=== PATIENT | male | born 1965 | race Caucasian/White ===

== ENCOUNTER 2024-11-08 00:21 | Inpatient (IN) | payer BC, SELFPAY ==
[2024-11-07 19:50] VITALS: BP 134/94
[2024-11-07 20:04] LABS: % Basophils 0.3 % (0-2); % Eosinophils 2.1 % (0-6); % Immature Granulocytes 0.4 % (0-0.5); % Lymphocytes 2.1 % (20.5-51.1); % Monocytes 2.4 % (1.7-9.3); % Neutrophils 92.7 % (42.2-75.2); Absolute Eosinophils 0.3 10^3/uL (0-0.7); Absolute Immature Granulocytes 0.1 10^3/uL (0-0.05); Absolute Lymphocytes 0.3 10^3/uL (1.2-3.4); Absolute Monocytes 0.3 10^3/uL (0.1-0.6); Absolute Neutrophils 10.8 10^3/uL (1.4-6.5); Hematocrit 30.4 % (39.0-52.0); Hemoglobin 10.2 g/dL (13.0-18.0); Mean Corp Hgb Conc. 33.6 g/dL (33.0-37.0); Mean Corpuscular Hgb 30.3 pg (27.0-31.0); Mean Corpuscular Volume 90.2 fL (80.0-94.0); Mean Platelet Volume 10.1 fL (7.4-10.4); Nucleated Red Blood Cells % 0 % (-); Platelet Count 162 10^3/uL (130-400); Red Blood Cell Count 3.37 10^6/uL (4.70-6.10); Red Cell Dist. Width 15.2 % (11.5-14.5); White Blood Cell Count 11.7 10^3/uL (4.8-10.8)
[2024-11-07 20:26] VITALS: BP 158/89
[2024-11-07 20:27] LABS: ALT (SGPT) 34 U/L (0-50); AST (SGOT) 32 U/L (17-59); Albumin 3.4 g/dl (3.5-5.0); Alkaline Phosphatase 59 U/L (38-126); Blood Urea Nitrogen 46 mg/dl (9-20); Calcium 9.6 mg/dl (8.4-10.2); Carbon Dioxide 22 mmol/L (22-30); Chloride 106 mmol/L (98-107); Glucose 153 mg/dl (70-99); Potassium 3.6 mmol/L (3.5-5.1); Sodium 138 mmol/L (135-145); Total Bilirubin 0.3 mg/dl (0.2-1.3); Total Protein 6.3 g/dl (6.3-8.2); eGFR 32.11
--- NOTE | 2024-11-07 20:43 | ED.GENMED ---
History of Present Illness
General
Chief Complaint: Allergic Reaction
Source: patient and spouse
Exam Limitations: none
Time Seen by Provider: 11/07/24 20:22
Nursing documentation reviewed up to this point in time: agreed with
History of Present Illness
History of Present Illness:
59-year-old male presents emergency room due to vomiting abdominal pain for the past 2 hours. He was sent by his oncologist for cytokine release syndrome, reaction to a new immunotherapy drug. He has had 1 dose of that this week.
Past History
Past History
ED Past Medical History: HTN, Hypercholesterolemia, NIDDM, Psychiatric (Depression) and Other (Chronic lower extremity muscle pain and cramping, Neuropathy, vasculitis, MCUS Protein Problem)
ED Past Surgical History: Appendectomy and Orthopedic (Antonio knee surgery, C-spine surgery)
Social History
Tobacco: Non-smoker
Alcohol: None
Drug: None
Personal:
Living: with family
Employment: Employed
Review of Systems
Review of Systems
Allergies reviewed?: Yes
All Other Systems: Not applicable
Constitutional: Reports no symptoms
EENT: Reports no symptoms
Respiratory: Reports no symptoms
Cardiac: Reports no symptoms
ABD/GI: Reports abdominal pain, nausea and vomiting
: Reports no symptoms
Musculoskeletal: Reports no symptoms
Skin: Reports no symptoms
Neurological: Reports no symptoms
Endocrine: Reports no symptoms
Hematologic/Lymphatic: Reports no symptoms
Psychiatric: Reports no symptoms
Phy Exam
Physical Exam
Physical Exam:
Physical Exam
General: Appears uncomfortable, afebrile
Neck: supple. no meningeal signs. normal posterior pharynx
Heart: s1/s2 regular rate and rhythm, no murmur. equal radial
pulses.
HEENT: Pupils equal round reactive to light, EOMI
Lungs: no acute respiratory distress. clear bilaterally
Abdomen: normal bowel sounds. not tender. no CVAT
Neuro: alert and oriented. no focal neurological deficits cranial nerves II through XII intact
Skin: no rash
Psychiatric: well kept. interactive and cooperative
Extremities: no edema. no calf tenderness. negative homans. good distal pulses
Course
Orders/Labs/Results
Orders:
Orders
11/07/24 19:57
C-Reactive Protein Urgent
Comment: ADD ON
Complete Blood Count/With Diff Urgent
Comprehensive Metabolic Panel Urgent
Erythrocyte Sed Rate Urgent
Comment: ADD ON
11/07/24 20:39
HYDROmorphone [Dilaudid] 0.5 mg .ROUTE .STK-MED ONE
Ondansetron Injectable [Zofran] 4 mg .ROUTE .STK-MED ONE
11/07/24 20:42
HYDROmorphone [Dilaudid] 0.5 mg IV NOW STA
Ondansetron Injectable [Zofran] 4 mg IV NOW STA
11/07/24 20:43
Lactated Ringers [Lr] 1,000 ml IV BOLUS
11/07/24 21:09
US Abdomen Complete/Upper Urgent
Comment:
Reason For Exam: epigastric pain, vomiting
11/07/24 21:13
Add On- LAB Urgent
Tests Added?: esr, crp
11/07/24 22:56
Dexamethasone Sod Phosphate [Decadron] 10 mg IV NOW STA
11/07/24 22:57
Ferritin Urgent
Fibrinogen Urgent
PTT Urgent
Prothrombin Time Urgent
11/07/24 23:02
HYDROmorphone [Dilaudid] 0.5 mg IV NOW STA
11/07/24 23:18
Ondansetron Injectable [Zofran] 4 mg .ROUTE .STK-MED ONE
11/07/24 23:20
Ondansetron Injectable [Zofran] 4 mg IV NOW STA
11/07/24 23:31
Admit/Transfer Patient As Directed
Co-Sign Provider:
Level of Care: Inpatient admission
Assign to:: Medical/Surgical
Physician / Group: hayley
Diagnosis: cytokine release syndrome
Reason for Hospitalization: cytokine release syndrome
Expected length of stay greater than two midnights?: Yes
ELOS- Estimated Length of Stay in days: 2
I certify the patient meets the requirements for IP care: Yes
Code Status As Directed
Resuscitation Status: Full Code
PRN Pain Medication Management As Directed
May give lesser potent ordered pain med per pt: Yes
preference::
Protocol:: Medication orders for pain may be administered in a
manner that supports deferring to patient preference
when the pt is:
- Requesting an ordered lesser potent pain medication.
Least to most potent pain medications are defined
as: acetaminophen < NSAID < tramadol < opioids
(morphine, oxycodone, hydromorphone).
- Requesting a lesser dose of the same medication IF
ORDERED.
- Requesting a less intrusive route of administration
if both routes are prescribed by the provider (PO <
IV).
Abnormal Lab Results
11/07/24 11/07/24
19:57 22:57
WBC 11.7 H 10^3/uL
(4.8-10.8)
RBC 3.37 L 10^6/uL
(4.70-6.10)
Hgb 10.2 L g/dL
(13.0-18.0)
Hct 30.4 L %
(39.0-52.0)
RDW 15.2 H %
(11.5-14.5)
Abs Immat Gran (auto) 0.1 H 10^3/uL
(0-0.05)
Absolute Neuts (auto) 10.8 H 10^3/uL
(1.4-6.5)
Absolute Lymphs (auto) 0.3 L 10^3/uL
(1.2-3.4)
Neutrophils % 92.7 H %
(42.2-75.2)
Lymphocytes % 2.1 L %
(20.5-51.1)
ESR 37 H mm/hour
(0-20)
APTT 23.0 L Sec
(23.4-35.0)
BUN 46 H mg/dl
(9-20)
Creatinine 2.3 H mg/dL
(0.7-1.3)
Glucose 153 H mg/dl
(70-99)
Albumin 3.4 L g/dl
(3.5-5.0)
11/07/24 19:57
11/07/24 19:57
Vital Signs
Initial and Last Documented VS:
Initial Vital Signs
Temp Pulse Resp BP Pulse Ox
97.8 F 105 16 134/94 95
11/07/24 19:50 11/07/24 19:50 11/07/24 19:50 11/07/24 19:50 11/07/24 19:50
Last Documented Vital Signs
Temp Pulse Resp BP Pulse Ox
97.8 F 88 21 131/79 93
11/07/24 19:50 11/07/24 21:30 11/07/24 21:30 11/07/24 21:00 11/07/24 21:30
MDM/Problems Addressed
Differential Diagnosis Includes:
Cytokine release syndrome, cholecystitis, pancreatitis
MDM/Problems Addressed:
59-year-old male with likely cytokine release syndrome, nausea vomiting abdominal pain. Ultrasound abdomen no acute findings. Abdomen soft. Transfer accepted at [facility], but no beds available. Admit to hospital
*Radiology
Radiology exam reviewed: radiology read reviewed (US abd nad)
*Pulse Oximetry
Patient hypoxic: no
*Powersaw Supervisor Interpretation
Rate: normal
Interpretation: normal
Heart Rate: 85
Rhythm: sinus
*Critical Care Note
Total Time (30-74mins, 75-104mins- exclusive of procedures): 30
comment:
Critical care statement: A total of 30 minutes of critical care time was provided for this patient. This includes management of unstable vital signs, evaluation of the patient at bedside, reviewing the patient's pertinent medical records, discussion
with consultants, review of old EKGs and review of pertinent medical records. This time with separate from time utilized to perform the aforementioned documented procedures
Patient Management
Social determinants of health affecting care: Living situation and Strong social support
Discussion with other providers: Hospitalist and Allergist/Immunologist Physician (Oncology, Dr. Stark)
Escalation/DeEscalation of care consider admission/obs:
admit/transfer indicated
ED Attending Note
-
Portions of this chart may have been created with voice recognition software.� Occasional wrong word or��sound alike� substitutions may have occurred due to the inherent limitations of voice recognition software.
Discharge Plan
Departure
Patient Disposition: Admit
Date of Disposition: 11/07/24
Time of Disposition: 23:01
Admit to: Telemetry
Presentation/result/management discussed w/ accepting MD/DO: Hospitalist
Patient with high blood pressure during this ER visit?: Yes
Condition: Fair
Discharge Problem:
Cytokine release syndrome
Prescriptions:
No Action
alendronate [Fosamax] 70 mg Tablet
70 mg PO SPENCER
nifedipine 30 mg Tablet Extended Release
30 mg PO DAILY Qty: 30 0RF
bupropion HCl [Wellbutrin SR] 150 mg Tablet Sustained-Release 12 Hr
150 mg PO DAILY
carvedilol [Coreg] 6.25 mg Tablet
6.25 mg PO BID
acyclovir 400 mg Tablet
400 mg PO BID
sulfamethoxazole-trimethoprim [Bactrim DS] 800-160 mg Tablet
1 tab PO MOWEFR
aspirin 81 mg Tablet,Delayed Release (Dr/Ec)
81 mg PO DAILY
ondansetron [Zofran ODT] 8 mg Tablet,Disintegrating
8 mg PO [id number] PRN (Reason: nausea)
ferrous sulfate 325 mg (65 mg iron) Tablet
325 mg PO DAILY
dexamethasone 4 mg Tablet
4 mg PO DIRECTED
Rx Instructions:
TAKE 4MG BID FOR 3 DAY WITH DOSE OF CYTOKINE
allopurinol 300 mg Tablet
300 mg PO BID
rosuvastatin [Crestor] 20 mg Tablet
20 mg PO QPM
calcium carbonate-vitamin D3 [Calcium 500 + D] 500 mg-10 mcg (400 unit) Tablet
1 tab PO DAILY
teclistamab-cqyv 10 mg/mL Solution
0 mg SC DIRECTED
Referrals:
To Joe DO [Family Provider] -
Interventions
Interventions:
*Risk Screen - Suicide Last Done: 11/07/24 19:52
*Neglect/Abuse Screening Last Done: 11/07/24 19:52
ED- Cardiac Assessment Last Done: 11/07/24 21:05
ED- Pulmonary Assessment Last Done: 11/07/24 21:05
ED-Skin Assessment Last Done: 11/07/24 21:05
Discharge Date and Time
Print Language: MALAYSIAN
[2024-11-07] MEDS: DILAUDID 0.5 MG IV ×2 (20:44→23:11)
[2024-11-07] MEDS: LR 1000 IV (20:44)
[2024-11-07] MEDS: ZOFRAN 4 MG IV ×2 (20:44→23:20)
[2024-11-07 21:00] VITALS: BP 131/79
[2024-11-07 22:29] LABS: Erythrocyte Sed Rate 37 mm/hour (0-20)
[2024-11-07 22:56] VITALS: BP 150/101
[2024-11-07 23:00] VITALS: BP 147/100
[2024-11-07] MEDS: DECADRON 10 MG IV (23:10)
[2024-11-07 23:13] LABS: PT 13.5 Sec (11.4-14.6)
[2024-11-07 23:14] LABS: Fibrinogen 288 MG/DL (199-459)
--- NOTE | 2024-11-07 23:33 | HPS.HSE ---
Family Physician
-
Family Physician: To Joe
Chief Complaint
-
abdominal pain, vomiting
History of Present Illness
59-year-old male past medical history of polyarteritis nodosa, MATTHEWS vasculitis, peripheral neuropathy, MGUS, depression, CKD 3, anemia of chronic disease, hypertension, presenting with vomiting, abdominal pain for the past 2 hours. He was sent in by
his oncologist for cytokine release syndrome which is thought to be reaction from a new immunotherapy Teclistamab.
Patient received his first dose of the immunotherapy a week ago and a day afterwards she developed symptoms of fever, joint pains, nausea. He was started cytokine release syndrome. Was treated with tocilizumab a day after with improvement in
symptoms.
He had a second dose of the immunotherapy yesterday and today he developed symptoms although different symptoms than from the original cytokine release syndrome. At this time he has abdominal pain and vomiting but no fever at this time. No
shortness of breath or chest pain. No diarrhea.
Medical History
Past Medical History
Past Medical History: Reports Other (polyarteritis nodosa, MATTHEWS vasculitis, peripheral neuropathy, MGUS, depression, CKD 3, anemia of chronic disease, hypertension)
Past Surgical History: Reports Other (Appendectomy and Orthopedic (Antonio knee surgery, C-spine surgery))
Social History
Tobacco: Non-smoker
Alcohol: None
Drug: None
Family History
Family History: Not pertinent
Allergies / Home Medications
Allergies reflects when Allergies were last updated in [employer].
Home Medications with original date entered in [employer]
Allergy/Medication List:
Allergies
Allergy/AdvReac Type Severity Reaction Status Date / Time
amoxicillin Allergy Mild Rash Verified 08/18/23 20:42
Home Medications
alendronate 70 mg tablet (Fosamax) 70 mg PO SPENCER OSTEOPROSIS 04/28/23
nifedipine 30 mg tablet,extended release 30 mg PO DAILY #30 tabs 11/19/23
acyclovir 400 mg tablet 400 mg PO BID 11/07/24
allopurinol 300 mg tablet 300 mg PO BID 11/07/24
aspirin 81 mg tablet,delayed release 81 mg PO DAILY 11/07/24
bupropion HCl 150 mg tablet,12 hr sustained-release (Wellbutrin SR) 150 mg PO DAILY 11/07/24
calcium 500 mg (as carbonate)-vitamin D3 10 mcg (400 unit) tablet (Calcium 500 + D) 1 tab PO DAILY 11/07/24
carvedilol 6.25 mg tablet (Coreg) 6.25 mg PO BID 11/07/24
dexamethasone 4 mg tablet 4 mg PO DIRECTED 11/07/24
ferrous sulfate 325 mg (65 mg iron) tablet 325 mg PO DAILY 11/07/24
ondansetron 8 mg disintegrating tablet 8 mg PO [id number] PRN nausea 11/07/24
rosuvastatin 20 mg tablet (Crestor) 20 mg PO QPM 11/07/24
sulfamethoxazole 800 mg-trimethoprim 160 mg tablet (Bactrim DS) 1 tab PO MOWEFR 11/07/24
teclistamab-cqyv 10 mg/mL subcutaneous solution 0 mg SC DIRECTED 11/07/24
Review of Systems
-
History Source: Patient
A 12 point ROS was completed and negative except as noted: Yes
Constitutional: Reports No Symptoms
EENT: Reports No Symptoms
Respiratory: Reports No Symptoms
Cardiac: Reports No Symptoms
Abdomen/GI: Reports No Symptoms
: Reports No Symptoms
Musculoskeletal: Reports No Symptoms
Skin: Reports No Symptoms
Neurological: Reports No Symptoms
Endocrine: Reports No Symptoms
Hematologic/Lymphatic: Reports No Symptoms
Psych: Reports No Symptoms
Physical Exam
Vital Signs
Vital Signs
Temp Pulse Resp BP Pulse Ox
97.8 F 88 21 131/79 93
11/07/24 19:50 11/07/24 21:30 11/07/24 21:30 11/07/24 21:00 11/07/24 21:30
Physical Exam
General: Well Developed, Well Nourished and No Apparent Distress
HEENT: NormoCephalic, Moist mucous membranes and Atraumatic
Respiratory: Clear
Cardiac: S1/S2 and Regular Rhythm; No Murmur or Rub
GI: Soft, Non Tender, Non Distended and Normal Bowel Sounds; No Organomegaly
Rectal: Deferred by Provider
Musculoskeletal: No Clubbing, No Cyanosis and No Edema
Skin: No Rash
Neuro: Nonfocal/grossly intact
Laboratory Results
-
11/07/24 19:57
11/07/24 19:57
Laboratory Results
PT 13.5 Sec (11.4-14.6) 11/07/24 22:57
INR 1.00 11/07/24 22:57
APTT 23.0 Sec (23.4-35.0) L 11/07/24 22:57
Total Bilirubin 0.3 mg/dl (0.2-1.3) 11/07/24 19:57
AST 32 U/L (17-59) 11/07/24 19:57
ALT 34 U/L (0-50) 11/07/24 19:57
Alkaline Phosphatase 59 U/L (38-126) 11/07/24 19:57
Data Reviewed
-
Lab Data: Labs Reviewed by me
Old Records: Reviewed
Impression/Plan
-
IMPRESSION:
PLAN:
# Cytokine release syndrome
-Leukocytosis
-Abdominal ultrasound shows no abnormalities
-IV fluids
- Dexamethasone 10 mg given, continue 4 mg every 12
-Zofran
-Dilaudid for abdominal pain
-Patient accepted for transfer at [facility] by Dr. Stark But no beds available
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
Peripheral neuropathy
MGUS with renal involvement
-Continue prophylactic Bactrim, acyclovir, allopurinol
Depression
-Continue bupropion
CKD 3
-Renal function at baseline
Chronic anemia of chronic disease
-Hemoglobin stable
Essential hypertension
-Continue nifedipine, Coreg
Osteoporosis
-Continue alendronate
Full code
DVT prophylaxis�heparin
Regular diet
[2024-11-08 00:32] LABS: Lipase > 4000 U/L (23-300)
[2024-11-08 00:55] VITALS: BP 124/88
--- NOTE | 2024-11-08 01:26 | W.PN.UPDATE ---
Update Note
Progress Note Update
lipase>4000
for pancreatitis change fluids to LR@200
lipase in am
check triglycerides
clear diet for now
[2024-11-08 01:49] VITALS: BP 140/87
--- NOTE | 2024-11-08 02:34 | PTCARENOTE ---
Pt received from ER [id number] able to make his needs known.Denies pain at this time. Pt oriented to room & call orourke in reach.Plan of care contiued.
[2024-11-08] MEDS: LR 1000 IV ×2 (03:33→09:02)
[2024-11-08 05:30] VITALS: BMI 26.9
[2024-11-08 07:35] VITALS: BP 133/78
--- NOTE | 2024-11-08 07:59 | W.PN.HOSP.TC ---
Addendum entered and electronically signed by Karan Walker MD 11/08/24 14:07:
?acute pancreatitis, lipase high and abd pain. CTAP oral contrast ordered. ivf. antiemetics prn. analgesics prn.
Case discussed with [place] oncologist as they are concerned for cytokine release syndrome. They want him discharged from [facility], go to [place] ED in admit to floors over there.
More than 30 minutes spent in discharge including
Final examination of the patient
Summarizing hospital stay
Instructions for continuing care to all relevant caregivers
Preparation of discharge records, prescriptions, and referral forms
Total time spent (in minutes): 33mins
Original Note:
Today's Communication/Plan
-
Complete CT abdomen pelvis
Discharge so that can take patient down to [facility]
Assessment / Plan
Assessment / Plan
#Cytokine release syndrome
Abdominal ultrasound negative
Continue IV fluids
Continue dexamethasone 4 mg every 12
Continue Zofran
Continue Dilaudid for pain
CT AP with oral contrast pending
Patient accepted to transfer at [facility] by Dr. Stark, given bed 14[address] in the [address]
once CT complete, pt can go to [facility]
#MGUS with renal involvement
Continue Bactrim, acyclovir, allopurinol
#Depression
Continue bupropion
#CKD 3
Renal function at baseline
#Anemia of chronic disease
Continue to monitor CBCs
#Essential hypertension
Continue nifedipine and Coreg
#Osteoporosis
Continue alendronate
#peripheral neuropathy
Full code
DVT prophylaxis heparin
Regular diet
Anticipated Discharge: Today
Subjective/Interval History
-
Date of Service: November 08, 2024
59-year-old male with past medical history of MATTHEWS, MATTHEWS vasculitis, peripheral neuropathy, MGUS, depression, CKD 3, anemia of chronic disease, hypertension who presented to [facility] with vomiting and abdominal pain. He was sent to the ED
by his oncologist for cytokine release syndrome which was thought to be secondary to new immunotherapy. Patient has been accepted for transfer to [place].
Objective Data
-
Labs:
Laboratory Results
11/07/24 11/07/24 11/08/24
19:57 22:57 07:36
WBC 11.7 H Pending
Hgb 10.2 L Pending
Hct 30.4 L Pending
Plt Count 162 Pending
PT 13.5
INR 1.00
APTT 23.0 L
Sodium 138 Pending
Potassium 3.6 Pending
Chloride 106 Pending
Carbon Dioxide 22 Pending
BUN 46 H Pending
Creatinine 2.3 H Pending
Glucose 153 H Pending
Calcium 9.6 Pending
Total Bilirubin 0.3 Pending
AST 32 Pending
ALT 34 Pending
Alkaline Phosphatase 59 Pending
Vital Signs:
Vital Signs
Temp Pulse Resp BP Pulse Ox
97.7 F 78 20 140/87 97
11/08/24 02:16 11/08/24 01:49 11/08/24 01:49 11/08/24 01:49 11/08/24 01:49
Review of Systems
-
History Source: Patient
Constitutional: Reports Weakness
EENT: Reports No Symptoms Reported
Respiratory: Reports No Symptoms
Cardiac: Reports No Symptoms
Abdomen/GI: Reports Nausea and Vomiting
Genitourinary: Reports No Symptoms
Musculoskeletal: Reports No Symptoms
Skin: Reports No Symptoms
Neuro: Reports No Symptoms
Physical Exam
-
General: Well Developed, Well Nourished and Conversant
HEENT: Normocephalic and Atraumatic
Respiratory: Clear to Auscultation
Cardiac: Regular Rhythm and S1/S2
GI: Soft, Tender and Distended (mild)
Musculoskeletal: No Clubbing, No Cyanosis and No Edema
Skin: Warm and Dry
Neuro: AO x 3
Psych: Calm
Data Reviewed
-
Ultrasound: Report Reviewed by me
Labs: Labs Reviewed by me and Discussed with Physician
Old Records: Reviewed
[2024-11-08 08:24] LABS: % Basophils 0.3 % (0-2); % Immature Granulocytes 0.5 % (0-0.5); % Lymphocytes 1.4 % (20.5-51.1); % Monocytes 1.2 % (1.7-9.3); % Neutrophils 96.6 % (42.2-75.2); Absolute Immature Granulocytes 0.1 10^3/uL (0-0.05); Absolute Lymphocytes 0.1 10^3/uL (1.2-3.4); Absolute Monocytes 0.1 10^3/uL (0.1-0.6); Absolute Neutrophils 9.5 10^3/uL (1.4-6.5); Hematocrit 30.5 % (39.0-52.0); Mean Corp Hgb Conc. 32.8 g/dL (33.0-37.0); Mean Corpuscular Hgb 30.3 pg (27.0-31.0); Mean Corpuscular Volume 92.4 fL (80.0-94.0); Mean Platelet Volume 10.8 fL (7.4-10.4); Nucleated Red Blood Cells % 0 % (-); Platelet Count 153 10^3/uL (130-400); Red Cell Dist. Width 15.2 % (11.5-14.5); White Blood Cell Count 9.8 10^3/uL (4.8-10.8)
[2024-11-08] MEDS: OSCAL 500 + D 500 MG PO (08:55)
[2024-11-08] MEDS: ZYLOPRIM 300 MG PO (08:55)
[2024-11-08] MEDS: COREG 6.25 MG PO (08:55)
[2024-11-08] MEDS: PROCARDIA XL (EXTENDED RELEASE) 30 MG PO (08:55)
[2024-11-08] MEDS: ASPIR LOW (ENTERIC COATED) 81 MG PO (08:55)
[2024-11-08] MEDS: HEPARIN 5000 UNITS SC (08:56)
[2024-11-08] MEDS: WELLBUTRIN SR (12 hour sustained release) 150 MG PO (08:56)
[2024-11-08] MEDS: FEOSOL 325 MG PO (08:56)
[2024-11-08 08:57] LABS: ALT (SGPT) 27 U/L (0-50); AST (SGOT) 22 U/L (17-59); Albumin 2.5 g/dl (3.5-5.0); Alkaline Phosphatase 41 U/L (38-126); Blood Urea Nitrogen 52 mg/dl (9-20); Calcium 8.4 mg/dl (8.4-10.2); Carbon Dioxide 25 mmol/L (22-30); Chloride 106 mmol/L (98-107); Estimated Creatinine Clearance 34 ml/min; Glucose 148 mg/dl (70-99); Sodium 138 mmol/L (135-145); Total Bilirubin 0.2 mg/dl (0.2-1.3); Total Protein 4.9 g/dl (6.3-8.2); Triglycerides 140 mg/dl (10-149); eGFR 29.05
[2024-11-08] MEDS: ZOVIRAX 400 MG PO (08:57)
--- NOTE | 2024-11-08 09:40 | CON.ONC ---
Impression
Impression
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
Vasculitis - Polyarteritis nodosa (MATTHEWS)
MGUS/MGRS
Neuropathy
CKD
Plan
Plan
Spoke to his attending oncologist Dr. Nga Stark at [place].
Patient is clinically improved with dexamethasone 10 mg daily given in the ER around [address] Stark wants patient transferred to [place] today. She is coordinating bed availability. She does not wish us to proceed with tocilizumab at this point because he is clinically improved following the 1 dose of steroid. She also does not wish
me to give any additional steroids at this time.
This is an atypical presentation of CRS and his abdominal symptoms could be related to either MATTHEWS or CRS.
Tells me she is working with the transfer center to get him transferred quickly hospital to hospital.
Patient History
History of Present Illness
CC:Cytokine release syndrome
HPI: 59-year-old male with IgM MGUS, MGRS, polyarteritis nodosa, MATTHEWS vasculitis, peripheral neuropathy, MGUS, depression, CKD 3, anemia of chronic disease, hypertension, presenting with vomiting, abdominal pain for the past 2 hours. He was sent in
by his [place] oncologist (Dr. Nga Stark) for cytokine release syndrome which is thought to be reaction from a new immunotherapy Teclistamab. He was given dexamethasone 10 mg in the ER last night and is feeling improved and spoke to her
directly and a bed has been opened up for transfer.
Last week he was treated with an initial low dose of Teclistamab and a day afterwards he developed symptoms of fever, joint pains, nausea. He was given tocilizumab for cytokine release syndrome a day after with improvement in symptoms.
He had a second dose of the teclistamab yesterday and today he developed symptoms although different symptoms than from the original cytokine release syndrome. At this time he has abdominal pain and vomiting but no fever at this time. No shortness
of breath or chest pain. No diarrhea. He was given dexamethasone 10 mg in the ER and is feeling better. Plans are for transfer to [place] later today
Past-Medical/Surgical History
PMH: MGUS with polyarteritis nodosa, MATTHEWS vasculitis, peripheral neuropathy, MGUS, depression, CKD 3, anemia of chronic disease, hypertension
Past Surgical History: Reports Other (Appendectomy and Orthopedic (Antonio knee surgery, C-spine surgery))
Social History
Tobacco: Non-smoker
Alcohol: None
Drug: None
Family History
Family History: Not pertinent
Patient Medication
�Medication �Instructions �Recorded �Confirmed �Last Taken �Type
alendronate 70 mg tablet (Fosamax) 70 mg PO SPENCER OSTEOPROSIS 04/28/23 11/07/24 11/05/24 History
nifedipine 30 mg tablet,extended 30 mg PO DAILY #30 tabs 08/29/23 11/07/24 11/07/24 Rx
release
acyclovir 400 mg tablet 400 mg PO BID 11/07/24 11/07/24 11/07/24 History
allopurinol 300 mg tablet 300 mg PO BID 11/07/24 11/07/24 11/07/24 History
aspirin 81 mg tablet,delayed 81 mg PO DAILY 11/07/24 11/07/24 11/07/24 History
release
bupropion HCl 150 mg tablet,12 hr 150 mg PO DAILY 11/07/24 11/07/24 11/07/24 History
sustained-release (Wellbutrin SR)
calcium 500 mg (as 1 tab PO DAILY 11/07/24 11/07/24 11/07/24 History
carbonate)-vitamin D3 10 mcg (400
unit) tablet (Calcium 500 + D)
carvedilol 6.25 mg tablet (Coreg) 6.25 mg PO BID 11/07/24 11/07/24 11/07/24 History
dexamethasone 4 mg tablet 4 mg PO DIRECTED 11/07/24 11/07/24 11/07/24 History
ferrous sulfate 325 mg (65 mg 325 mg PO DAILY 11/07/24 11/07/24 11/07/24 History
iron) tablet
ondansetron 8 mg disintegrating 8 mg PO [id number] PRN nausea 11/07/24 11/07/24 11/07/24 History
tablet
rosuvastatin 20 mg tablet (Crestor) 20 mg PO QPM 11/07/24 11/07/24 11/06/24 History
sulfamethoxazole 800 1 tab PO MOWEFR 11/07/24 11/07/24 11/06/24 History
mg-trimethoprim 160 mg tablet
(Bactrim DS)
teclistamab-cqyv 10 mg/mL 0 mg SC DIRECTED 11/07/24 11/07/24 11/06/24 History
subcutaneous solution
Active Medications
Generic Name Dose Route Start Last Admin
Trade Name Freq PRN Reason Stop Dose Admin
Acyclovir Sodium 400 mg 11/08/24 08:00 11/08/24 08:57
Acyclovir Sodium 200 Mg Capsule PO 11/18/24 07:59 400 mg
BID JESSICA Administration
Alendronate Sodium 70 mg 11/12/24 08:00
Alendronate 70 Mg Tablet PO 12/10/24 07:59
SPENCER JESSICA
Allopurinol 300 mg 11/08/24 08:00 11/08/24 08:55
Allopurinol 300 Mg Tablet PO 12/06/24 07:59 300 mg
BID JESSICA Administration
Aspirin 81 mg 11/08/24 08:00 11/08/24 08:55
Aspirin 81 Mg (Enteric Coated) Tablet PO 12/06/24 07:59 81 mg
DAILY JESSICA Administration
Bupropion HCl 150 mg 11/08/24 08:00 11/08/24 08:56
Bupropion (12hr) Sustained Release 150 Mg Tablet PO 12/06/24 07:59 150 mg
DAILY JESSICA Administration
Calcium/Vitamin D 500 mg 11/08/24 08:00 11/08/24 08:55
Calcium Carbonate 500 Mg/Vitamin D 5 Mcg (200 Units) Tablet PO 12/06/24 07:59 500 mg
DAILY JESSICA Administration
Carvedilol 6.25 mg 11/08/24 08:00 11/08/24 08:55
Carvedilol 6.25 Mg Tablet PO 12/06/24 07:59 6.25 mg
BID JESSICA Administration
Ferrous Sulfate 325 mg 11/08/24 08:00 11/08/24 08:56
Ferrous Sulfate 325 Mg Tablet PO 12/06/24 07:59 325 mg
DAILY JESSICA Administration
Heparin Sodium 5,000 units 11/08/24 08:00 11/08/24 08:56
Heparin 5,000 Units/Ml 1 Ml Vial SC 12/06/24 07:59 5,000 units
Q12 JESSICA Administration
Hydromorphone HCl 0.5 mg 11/08/24 01:41
Hydromorphone 0.5 Mg/0.5 Ml Syringe IV 11/22/24 01:40
Q4HPRN PRN
severe pain
Lactated Ringer's 1,000 mls @ 200 mls/hr 11/08/24 02:00 11/08/24 09:02
Lr IV 1,000 mls
.Q5H JESSICA Administration
Nifedipine 30 mg 11/08/24 08:00 11/08/24 08:55
Nifedipine 30 Mg Extended Release Tablet PO 12/06/24 07:59 30 mg
DAILY JESSICA Administration
Ondansetron HCl 4 mg 11/08/24 01:41
Ondansetron 4 Mg/2 Ml Vial IV 12/06/24 01:40
Q6HPRN PRN
nausea and vomiting
Rosuvastatin Calcium 20 mg 11/08/24 18:00
Rosuvastatin (Crestor) 20 Mg Tablet PO 12/06/24 17:59
QPM JESSICA
Sodium Chloride 0 flush 11/08/24 06:00
Sodium Chloride 0.9% (Flush) Syringe IV 12/06/24 05:59
PER PROTOCOL JESSICA
Trimethoprim/Sulfamethoxazole 1 tablet 11/08/24 08:00 11/08/24 08:56
Sulfamethoxazole (800 Mg)/Trimethoprim (160 Mg) Tablet PO 1 tablet
MOWEFR JESSICA Administration
Physical Exam
-
General: Well Developed and Comfortable
HEENT: Negative Jaundice
Cardiology: S1 and S2
Pulmonary: Clear
GI: Soft and Flat
Extremities: No C/C/E
Labs
Lab Results
WBC 9.8 10^3/uL (4.8-10.8) 11/08/24 07:36
RBC 3.30 10^6/uL (4.70-6.10) L 11/08/24 07:36
Hgb 10.0 g/dL (13.0-18.0) L 11/08/24 07:36
Hct 30.5 % (39.0-52.0) L 11/08/24 07:36
MCV 92.4 fL (80.0-94.0) 11/08/24 07:36
MCH 30.3 pg (27.0-31.0) 11/08/24 07:36
MCHC 32.8 g/dL (33.0-37.0) L 11/08/24 07:36
RDW 15.2 % (11.5-14.5) H 11/08/24 07:36
Plt Count 153 10^3/uL (130-400) 11/08/24 07:36
MPV 10.8 fL (7.4-10.4) H 11/08/24 07:36
Abs Immat Gran (auto) 0.1 10^3/uL (0-0.05) H 11/08/24 07:36
Absolute Neuts (auto) 9.5 10^3/uL (1.4-6.5) H 11/08/24 07:36
Absolute Lymphs (auto) 0.1 10^3/uL (1.2-3.4) L 11/08/24 07:36
Absolute Monos (auto) 0.1 10^3/uL (0.1-0.6) 11/08/24 07:36
Absolute Eos (auto) 0.0 10^3/uL (0-0.7) 11/08/24 07:36
Absolute Basos (auto) 0.0 10^3/uL (0-0.2) 11/08/24 07:36
Immature Gran % 0.5 % (0-0.5) 11/08/24 07:36
Neutrophils % 96.6 % (42.2-75.2) H 11/08/24 07:36
Lymphocytes % 1.4 % (20.5-51.1) L 11/08/24 07:36
Monocytes % 1.2 % (1.7-9.3) L 11/08/24 07:36
Eosinophils % 0.0 % (0-6) 11/08/24 07:36
Basophils % 0.3 % (0-2) 11/08/24 07:36
Creatinine 2.5 mg/dL (0.7-1.3) H 11/08/24 07:36
Laboratory Tests
11/07/24
19:57
ESR 37 H
C-Reactive Protein 6.40
Vital Signs
Vital Signs
Temp Pulse Resp BP Pulse Ox
98 F 67 16 133/78 95
11/08/24 07:35 11/08/24 08:55 11/08/24 07:35 11/08/24 08:55 11/08/24 09:00
--- NOTE | 2024-11-08 10:27 | CM ---
Addendum entered by Kit Yepez 11/08/24 12:28:
Pt to be transferred to [place] today as his oncologist is there to further treat
Original Note:
Pt seen bedside w/ spouse. Initial assessment completed. Admitted for abdominal pain, vomiting.
Pt reports that he lives w/ spouse in a [facility]- 1 small step to enter. Pt has two adult kids in college.
Pt is independent w/ ambulating, does not require any DME for daily functioning
Denies SNF/VN/PT hx
Address, point of contact and insurance verified
PCP: Dr. Joe
Pharmacy: [facility]
Plan: Anticipate home; no needs
[2024-11-08 10:51] LABS: Lipase > 4000 U/L (23-300)
[2024-11-08] MEDS: OMNIPAQUE 50 ML PO (10:54)
--- NOTE | 2024-11-08 13:11 | W.DCSUMMARY ---
Discharge Summary
Discharge Data
Date of Admission: 11/08/24
Date of Discharge: 11/08/24
Total time spent discharging patient (in min): 75
-
Pending Results: No
Hospital Course
Discharging Physician : Karan Walker MD
Disposition : Patient being DC with to drive to [facility] for admission
Primary care physician : To Joe
Principal Discharge diagnosis : cytokine release syndrome
Hospital Course : 59-year-old male with past medical history of MATTHEWS, MATTHEWS vasculitis, peripheral neuropathy, MGUS, depression, CKD 3, anemia of chronic disease, hypertension who presented to [facility] with vomiting and abdominal pain. He
was sent to the ED by his oncologist for cytokine release syndrome which was thought to be secondary to new immunotherapy. Patient has been accepted for transfer to [place]. During his stay here, patient was given IV fluids, dexamethasone 10 mg,
Zofran and Dilaudid for symptom management. Labs showed elevated lipase at 4000+. CT abdomen pelvis was ordered with oral contrast due to renal numbers. Abdominal ultrasound was negative. Through extensive conversation with his primary oncology
team at [place], decision was made to transfer patient to their care. He was accepted and a bed was offered today in the afternoon. His [facility] through [facility].
#Cytokine release syndrome-transfer to [place]. CT abdomen pelvis pending. Patient accepted to transfer at [facility] by Dr. Stark, given bed 1440 in the [facility]
#Elevated lipase secondary to possible pancreatitis- CT abdomen pelvis pending
#MGUS with renal involvement- Continue Bactrim, acyclovir, allopurinol
#Depression- Continue bupropion
#CKD 3- Renal function at baseline
#Anemia of chronic disease- Continue to monitor CBCs
#Essential hypertension- Continue nifedipine and Coreg
#Osteoporosis- Continue alendronate
#peripheral neuropathy
Procedure findings :
Abdominal ultrasound 11/07
IMPRESSION:
Size of liver and spleen are in the upper range of normal, with no focal abnormalities.
The pancreas, upper abdominal aorta, and upper abdominal IVC are unable to be adequately visualized.
Discharge Plan
-
Patient Disposition: Home (Routine Discharge)
Discharge Diagnosis/Procedures: cytokine release syndrome
Condition: Fair
Additional Diets: clear liquids
Activity: As tolerated
Driving Restrictions: no driving while on pain medications
Bathing Restrictions: None
Referrals:
To Joe, DO [Family Provider] - in one to two weeks
Prescriptions:
Continued
alendronate [Fosamax] 70 mg Tablet
70 mg PO SPENCER
nifedipine 30 mg Tablet Extended Release
30 mg PO DAILY Qty: 30 0RF
bupropion HCl [Wellbutrin SR] 150 mg Tablet Sustained-Release 12 Hr
150 mg PO DAILY
carvedilol [Coreg] 6.25 mg Tablet
6.25 mg PO BID
acyclovir 400 mg Tablet
400 mg PO BID
sulfamethoxazole-trimethoprim [Bactrim DS] 800-160 mg Tablet
1 tab PO MOWEFR
aspirin 81 mg Tablet,Delayed Release (Dr/Ec)
81 mg PO DAILY
ondansetron 8 mg Tablet,Disintegrating
8 mg PO [id number] PRN (Reason: nausea)
ferrous sulfate 325 mg (65 mg iron) Tablet
325 mg PO DAILY
allopurinol 300 mg Tablet
300 mg PO BID
rosuvastatin [Crestor] 20 mg Tablet
20 mg PO QPM
calcium carbonate-vitamin D3 [Calcium 500 + D] 500 mg-10 mcg (400 unit) Tablet
1 tab PO DAILY
Held
teclistamab-cqyv 10 mg/mL Solution
0 mg SC DIRECTED
Hold Instructions: hold until primary oncology team resumes
Discontinued
dexamethasone 4 mg Tablet
4 mg PO DIRECTED
Rx Instructions:
TAKE 4MG BID FOR 3 DAY WITH DOSE OF CYTOKINE
Discharge Orders:
Discharge Patient (As Directed); Ordered 11/08/24
Ordered By: Toma Bender
Discharge Date and Time
Print Language: NORWEGIAN
[2024-11-08] MEDS: FLUSH (NSS) 1 FLUSH IV (14:13)
[2024-11-08] MEDS: ZOFRAN 4 MG IV (14:13)
[2024-11-08] MEDS: DILAUDID 0.5 MG IV (14:15)
[2024-11-08 14:27] VITALS: BP 107/65
== END 2024-11-08 15:20 | disposition short-term general hospital (02) | DRG 811 ==
LOC: 4 EAST ACU 00:21
PROVIDERS: Emergency Medicine; Nurse Practitioner Family; ADMITTING PHYSICIAN Hospitalist; ATTENDING PHYSICIAN Hospitalist; CONSULT PHYSICIAN Internal Medicine Hematology & Oncology; EMERGENCY PHYSICIAN Emergency Medicine; FAMILY PHYSICIAN Family Medicine
DX: T80.89XA Other complications following infusion, transfusion and therapeutic injection, initial encounter (principal); D89.839 Cytokine release syndrome, grade unspecified; K85.90 Acute pancreatitis without necrosis or infection, unspecified; C90.00 Multiple myeloma not having achieved remission; M30.0 Polyarteritis nodosa; E78.00 Pure hypercholesterolemia, unspecified; I12.9 Hypertensive chronic kidney disease with stage 1 through stage 4 chronic kidney disease, or unspecified chronic kidney disease; N18.30 Chronic kidney disease, stage 3 unspecified; M81.0 Age-related osteoporosis without current pathological fracture; D63.1 Anemia in chronic kidney disease; F32.A Depression, unspecified; T45.1X5A Adverse effect of antineoplastic and immunosuppressive drugs, initial encounter; E11.22 Type 2 diabetes mellitus with diabetic chronic kidney disease; E11.42 Type 2 diabetes mellitus with diabetic polyneuropathy; Z79.899 Other long term (current) drug therapy; Z88.0 Allergy status to penicillin; Z79.82 Long term (current) use of aspirin
CPT/HCPCS: 74176; 76700; 80053; 82728; 83690; 84478; 85025; 85384; 85610; 85652; 85730; 86140; 96361; 96374; 96375; 96376; 99291